=== PATIENT | female | born 1945 | race Caucasian/White ===

== ENCOUNTER → 2024-01-26 11:28 | Outpatient (REF) | payer MEDICARE, SELFPAY | LOC: RAD 11:28 | PROVIDERS: ATTENDING PHYSICIAN Family Medicine | DX: Z78.0 Asymptomatic menopausal state (principal) | CPT/HCPCS: 77080 ==

== ENCOUNTER → 2024-04-25 11:47 | Outpatient (REF) | payer MEDICARE, SELFPAY | LOC: WDC 11:47 | PROVIDERS: ATTENDING PHYSICIAN Family Medicine | DX: Z12.31 Encounter for screening mammogram for malignant neoplasm of breast (principal) | CPT/HCPCS: 77063; 77067 ==

== ENCOUNTER → 2025-04-26 12:29 | Outpatient (REF) | payer MEDICARE, SELFPAY | LOC: WDC 12:29 | PROVIDERS: ATTENDING PHYSICIAN Family Medicine | DX: Z12.31 Encounter for screening mammogram for malignant neoplasm of breast (principal) | CPT/HCPCS: 77063; 77067 ==